=== PATIENT | male | born 1985 | race Caucasian/White ===

== ENCOUNTER 2017-10-28 22:24 | Inpatient (IN) | payer OTHER ==
[~2017-10-28] VITALS: Ht 172.7 cm; Wt 72.6 kg
--- NOTE | ~2017-10-28 | HC ---
[facility] [place] [address] CONSULTATION Name: NICOLAS GALEANO Room #: 354-P [facility] IN M.R.#: [id number] Admission: 10/29/17 Attend Phys: Jennifer Sherwood Discharge: 11/03/17 Date of : 87 Report #: [id number] THIS REPORT FOR: //name// CC: KAYCE physician/PCP Jennifer Sherwood DATE OF SERVICE: 10/29/2017 WOUND CARE CONSULTATION PERSONAL PHYSICIAN: None on staff. CHIEF COMPLAINT: Left groin abscess. HISTORY OF PRESENT ILLNESS: This is a 32-year-old male, who has approximately 10-year history of untreated diabetes, who reported to the Emergency Department complaining of abdominal pain, nausea, vomiting and pain in his left groin. The patient was seen approximately a week ago and was diagnosed with an abscess in his left groin and started on clindamycin. The patient states since that time, the abscess started to spontaneously drain and he has felt it has actually gotten somewhat better. The patient, however, was noted in the Emergency Department to be hyperglycemic and was admitted for IV antibiotics and local wound care of the left groin abscess. We have asked to assist the patient. Surgery was initially seeing the patient and they felt this was not a surgical manner, and we were asked to assist in the wound care of this gentleman at that time. The patient denies any other associated wounds he could not heal on his own in the past. The patient states his blood sugars normally run between 200 and 300, and he does not take any insulin. PAST MEDICAL HISTORY: Significant for pancreatitis, longstanding history of diabetes for approximately 10 years. CURRENT MEDICATIONS: Include ibuprofen and clindamycin. DRUG ALLERGIES: MORPHINE IV. SOCIAL HISTORY: The patient does not smoke or drink alcohol. Comes to the hospital with his . REVIEW OF SYSTEMS: CONSTITUTIONAL: The patient denies fevers or chills. NEUROLOGIC: The patient denies numbness, tingling or weakness in his arms or legs. EYES: No complaints. ENT: No complaints. CARDIAC: The patient denies chest pain, palpitations, peripheral edema. [facility] [address] [place] [address] CONSULTATION Name: NICOLAS GALEANO Room #: 354-P [facility] IN M.R.#: [id number] Admission: 10/29/17 Attend Phys: Jennifer Sherwood Discharge: 11/03/17 Date of : 87 Report #: [id number] RESPIRATORY: The patient denies shortness breath, cough or wheezes. GASTROINTESTINAL: The patient was admitted last night for abdominal pain, nausea, vomiting; however, has not vomited today. GENITOURINARY: The patient denies urgency or frequency. MUSCULOSKELETAL: No complaints. SKIN: There is an open abscess in the left groin. PHYSICAL EXAMINATION: VITAL SIGNS: Temperature 39.3, pulse 118, respirations 16, BP 115/84. GENERAL: This is an alert and oriented x 3 male, who is in mild to moderate distress secondary to pain. HEENT: Normocephalic, atraumatic. Mucous membranes are dry. Pupils are round. Sclerae are white. NECK: Supple, nontender without rigidity. BACK: Nontender. LUNGS: Clear. HEART: Regular, without murmur. ABDOMEN: Soft. Mild diffuse tenderness without organomegaly, rebound or guarding. GENITOURINARY: Evaluation of the left groin reveals an open draining abscess in the pubic region, which has bloody drainage and is exquisitely tender to palpation. The patient will not let me probe the wound itself. There are no signs of fluctuance around the wound. There is some indurated tissue. There is no significant odor. Rest of the exam is unremarkable. EXTREMITIES: The patient moves all extremities without difficulty. NEUROLOGIC: Cranial nerves 2-12 grossly intact. Motor and sensory grossly intact. LABORATORY VALUES: White count 10.7, hemoglobin 12.7. Electrolytes within normal except for low bicarb at 20. Initial glucose was 390. Lactic acid 1.2, albumin within normal limits at 3.4. Lipase was 82. WOUND CARE COURSE: At this time, I talked to the patient about starting morphine, Silvadene compound to the left groin abscess for healing and pain relief. I talked to the patient about his morphine allergy. He said he does not remember exactly what kind of an allergy it was, but that was when he got IV morphine. We will go ahead and try a challenge dose of the morphine, Silvadene cream to see how he tolerates this. IMPRESSION: 1. Left groin abscess with spontaneous drainage. 2. Uncontrolled diabetes mellitus. 3. History of noncompliance. 4. History of abdominal pain, nonspecific. PLAN: At this time, we will once again start the above local wound care. The [address] [address] CONSULTATION Name: GALEANONICOLAS Bonilla Room #: 354-P [facility] IN M.R.#: [id number] Admission: 10/29/17 Attend Phys: Jennifer Sherwood Discharge: 11/03/17 Date of : 87 Report #: [id number] patient has a pelvic CT that has been ordered by the surgeons, which is pending. We will continue to follow the patient while he is here, make sure we maximize the patient's oral protein for healing and continue all other current medications. <ELECTRONICALLY SIGNED> By: Kayode Jauregui MD 11/07/17 1524 [id number] 1824 Kayode Jauregui MD /nt
--- NOTE | ~2017-10-28 | HC ---
[facility] [place] [address] CONSULTATION Name: NICOLAS GALEANO Room #: 354-P [facility] IN M.R.#: [id number] Admission: 10/29/17 Attend Phys: Jennifer Sherwood Discharge: Date of : 87 Report #: [id number] THIS REPORT FOR: //name// CC: KAYCE physician/PCP Jennifer Sherwood REASON FOR CONSULTATION: I was asked to evaluate concerning Gram-negative bacteremia. HISTORY OF PRESENT ILLNESS: The patient was a 32-year-old who developed her left groin soft tissue abscess about a week ago. This was treated at [facility] Emergency Room. After being placed on clindamycin, he had spontaneous drainage. Overall, has improved since the drainage, but still remains tender. He is a known diabetic, but has been off his oral hypoglycemic medication. He does not check his blood sugars. Presents now to the Emergency Room with increased abdominal pain, nausea and vomiting. At the time of his admission, his blood cultures were drawn and now growing gram-negative bacilli. Culture of the wound also was obtained and now that is growing gram-negative bacilli. The patient has had no diarrhea. He has had no dysuria. He has had no cough or sputum production. Now taking narcotics for his abdominal pain. Had vomiting throughout the morning. ALLERGIES: MORPHINE. MEDICATIONS: Included clindamycin and ibuprofen prior to his admission. Now on vancomycin and Zosyn. PAST MEDICAL HISTORY: Otherwise, unremarkable. SOCIAL HISTORY: Nonsmoker, no significant alcohol intake. 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 Grew up in [place]. Now resides in [place]. REVIEW OF SYSTEMS: As noted above. PHYSICAL EXAMINATION: VITAL SIGNS: Maximum temperature of 103 degrees. He is hemodynamically stable. GENERAL: The patient was lethargic after receiving narcotics for his pain. Did arouse and was doing better and toward the end of my examination. Mental status was essentially normal. Dentition in fair repair. NECK: Supple. LUNGS: Clear. HEART: Regular, without murmur. ABDOMEN: Tender, mostly in the epigastric region. It was scaphoid. No appreciable mass or hepatosplenomegaly. GENITOURINARY: Left pubic region soft tissue abscess with wound and purulent drainage. Minimal adenopathy. External genitalia, otherwise unremarkable. [facility] [address] [place] [address] CONSULTATION Name: NICOLAS GALEANO Room #: 354-P ADM IN M.R.#: [id number] Admission: 10/29/17 Attend Phys: Jennifer Sherwood Discharge: Date of : 87 Report #: [id number] Perianal examination normal. EXTREMITIES: Unremarkable. LABORATORY STUDIES: Sodium 140, potassium 3.3, bicarbonate of 18, creatinine 1.1. Blood sugar 297, AST 225, ALT 127, alkaline phosphatase 100, bilirubin 1. Lactate 0.9. Hemoglobin 11.7, platelet count 175,000, white count 12.2, differential was unremarkable. Vancomycin trough was 6. Hemoglobin A1c 13.3. Urinalysis had glucose and ketones, no protein. Cultures as noted above. CT scan of the abdomen showed changes concerning for pyelonephritis bilaterally. No abscess evident. He had constipation changes. Lipase normal. CT scan of the abdomen showed no evidence of pancreatic inflammation. IMPRESSION: A 32-year-old with gram-negative bacteremia, abdominal pain, left groin soft tissue abscess. At this time, it appears that the bacteremia may be related to the abscess cavity. So far no evidence of urinary tract infection. He does have constipation, but no evidence of diverticular disease. PLAN: Would recommend continuing gram-negative coverage with Zosyn. Await final culture results. Repeat urinalysis and urine culture. Continue fluid management and blood glucose control. <ELECTRONICALLY SIGNED> By: Luis Dean MD 10/31/17 0925 1646 1839 Luis Dean MD /nt
--- NOTE | ~2017-10-28 | S ---
[facility] [address] [place] [address] SURGICAL PATH RPT PROCEDURE Name: NICOLAS VASQUEZ Room #: 354-P ADM IN M.R.#: [id number] Admission: 10/29/17 Date of : 87 Discharge: Report #: [id number] Path Case #: [id number] PATHOLOGY REPORT COLLECTION DATE: 10/31/2017 RECEIVED DATE: 10/31/2017 SUBMITTING PHYS: Dr. Sharmaine Carvalho OTHER PHYS: Dr. Jennifer Sherwood SPECIMEN(S) RECEIVED: A.Duodenum B.Random gastric bx * * * * * * * * * * * * FINAL DIAGNOSIS: A. Small bowel mucosa, duodenum, rule out celiac, endoscopic biopsy: - No diagnostic abnormalities present. - Negative for villous blunting or increase in intraepithelial lymphocytes. - Rare scattered dilated lymphatics within lamina propria; nonspecific change. B. Gastric mucosa, gastric, rule out H. pylori, endoscopic biopsy: - Mild chronic active gastritis. - Negative for intestinal metaplasia or atrophy. - Negative for Helicobacter pylori. COMMENT: Well-controlled Helicobacter pylori immunohistochemical stain performed on block B1 - negative. An intensive search for Helicobacter pylori-like organisms is negative. Absence of such organisms does not entirely exclude the possibility and may be due to sampling or prior treatment. Other possible etiologies may include chemical gastritis, autoimmune gastritis, gastritis associated with inflammatory bowel disease. Please correlate with clinical, endoscopic, and microbiological studies if clinically indicated. (IUV:mml; 11/01/2017) PATHOLOGIST: Ksenia Vázquez M.D. REPORT ELECTRONICALLY SIGNED BY: Ksenia Vázquez M.D. DATE/TIME: 11/01/2017 15:08 * * * * * * * * * * * * GROSS PATHOLOGY: A. Received in formalin labeled "Nicolas Vasquez, BX duodenum, rule out celiac," are 2 segments of shaw soft tissue measuring 0.9 x 0.2 x [facility] [place] [address] SURGICAL PATH RPT PROCEDURE Name: NICOLAS VASQUEZ Room #: 354-P ADM IN M.R.#: [id number] Admission: 10/29/17 Date of : 87 Discharge: Report #: [id number] Path Case #: [id number] 0.3 cm in aggregate dimensions and ranging from 0.3 to 0.5 cm in maximum dimension. The specimen is submitted entirely in cassette A1. B. Received in formalin labeled "Nicolas Friends, random gastric BX, rule out H. pylori," are 4 segments of shaw soft tissue measuring 1.2 x 1.5 x 0.2 cm in aggregate dimensions and ranging from 0.3 to 0.6 cm in maximum dimension. The specimen is submitted entirely in cassette B1. (TSD; 10/31/2017) CLINICAL HISTORY: Pre-OP DX: Nausea, vomiting, abdominal pain Post-OP DX: Ulcerated distal esophagus, esophagitis INITIAL CPT CODE(S): A; 60107 B; 93404, 07864 Professional services performed by [facility] at [facility] [address], [place] [address] Technical services performed by [facility] at [address] [place] [address], [address], [place] [address]. [facility] [address] [place] [address] PHONE: [phone] DIRECTOR: Lee Delgado M.D. * * * END OF REPORT * * *
[2017-10-28 22:26] VITALS: BP 138/92
[2017-10-28] MEDS ORDERED: CLEOCIN HCL150 MG PO (22:34)
[2017-10-28] MEDS ORDERED: IBUPROFEN 800800 M1 PO (22:36)
[2017-10-28 22:52] LABS: ABSOLUTE NEUTROPHILS 8.6 thou/uL (1.4-8.2); BASOPHILS 0.6 % (0.0-2.0); HEMATOCRIT 39.7 % (42.0-52.0); HEMOGLOBIN 14.1 gm/dL (14.0-18.0); LYMPHOCYTES 6.7 % (24.0-44.0); MCH 28.9 pg (26.0-34.0); MCHC 35.5 g/dL (28.0-37.0); MCV 81.4 fL (80.0-100.0); MONOCYTES 5.9 % (1.0-8.0); PLATELET COUNT 265 thou/uL (150-400); POLYS 86.8 % (36.0-66.0); RBC 4.88 mil/uL (4.50-6.00); RDW 12.9 % (10.5-14.5); WBC 9.9 thou/uL (4.0-11.0)
[2017-10-28 22:59] LABS: CALCIUM 9.2 mg/dL (8.5-10.1); CREATININE 0.9 mg/dL (0.7-1.3); POTASSIUM 4.1 mmol/L (3.5-5.1)
[2017-10-28 23:05] LABS: ALBUMIN 3.4 g/dL (3.4-5.0); DIRECT BILIRUBIN 0.1 mg/dL (<0.1-0.3); TOTAL BILIRUBIN 0.7 mg/dL (<0.1-1.0); TOTAL PROTEIN 7.4 g/dL (6.4-8.2)
[2017-10-29] VITALS (7 sets, daily range): BP systolic 82–134; BP diastolic 63–97
[2017-10-29 00:13] LABS: URINE BILIRUBIN NEGATIVE (Negative); URINE BLOOD 2+ (Negative); URINE CLARITY CLEAR; URINE COLOR YELLOW; URINE GLUCOSE-RANDOM* 2+ (Negative); URINE KETONES 3+ (Negative); URINE LEUKOCYTES-REFLEX NEGATIVE (Negative); URINE NITRITE-REFLEX NEGATIVE (Negative); URINE PROTEIN (DIPSTICK) NEGATIVE (Negative); URINE SPECIFIC GRAVITY 1.015 (1.005-1.035); URINE UROBILINOGEN 0.2 E.U./dl (0.2-1.0)
[2017-10-29 00:22] LABS: CASTS None Seen /LPF (None Seen); SQUAMOUS 0-3 Few /LPF (0-3); URINE RBC 0-2 Rare /HPF (0-2); URINE WBC-REFLEX 0-5 Rare /HPF (0-5)
[2017-10-29 00:23] LABS: BACTERIA-REFLEX None Seen /HPF (None Seen); CRYSTALS None Seen /LPF (None Seen)
[2017-10-29 06:56] LABS: ABSOLUTE NEUTROPHILS 9.7 thou/uL (1.4-8.2); BASOPHILS 0.5 % (0.0-2.0); HEMATOCRIT 36.4 % (42.0-52.0); HEMOGLOBIN 12.7 gm/dL (14.0-18.0); LYMPHOCYTES 3.5 % (24.0-44.0); MCH 28.9 pg (26.0-34.0); MCV 82.6 fL (80.0-100.0); MONOCYTES 5.4 % (1.0-8.0); PLATELET COUNT 230 thou/uL (150-400); POLYS 90.6 % (36.0-66.0); RBC 4.41 mil/uL (4.50-6.00); RDW 12.7 % (10.5-14.5); WBC 10.7 thou/uL (4.0-11.0)
[2017-10-29 07:00] LABS: CALCIUM 8.5 mg/dL (8.5-10.1); CREATININE 0.8 mg/dL (0.7-1.3)
[2017-10-29 20:11] LABS: CALCIUM 8.8 mg/dL (8.5-10.1); CREATININE 1.2 mg/dL (0.7-1.3); POTASSIUM 3.7 mmol/L (3.5-5.1)
[2017-10-29 20:18] LABS: ALBUMIN 2.9 g/dL (3.4-5.0); TOTAL BILIRUBIN 0.8 mg/dL (<0.1-1.0); TOTAL PROTEIN 6.9 g/dL (6.4-8.2)
[2017-10-30] VITALS (7 sets, daily range): BP systolic 90–111; BP diastolic 62–79
[2017-10-30 03:10] LABS: GLYCOHEMOGLOBIN (HGB A1C) 13.3 % (4.8-5.6)
[2017-10-30 05:43] LABS: HEMOGLOBIN 11.7 gm/dL (14.0-18.0); MCH 28.8 pg (26.0-34.0); MCHC 35.4 g/dL (28.0-37.0); MCV 81.4 fL (80.0-100.0); RBC 4.05 mil/uL (4.50-6.00); RDW 12.6 % (10.5-14.5); WBC 12.2 thou/uL (4.0-11.0)
[2017-10-30 06:08] LABS: ALBUMIN 2.4 g/dL (3.4-5.0); CALCIUM 8.4 mg/dL (8.5-10.1); CREATININE 1.1 mg/dL (0.7-1.3); POTASSIUM 3.3 mmol/L (3.5-5.1); TOTAL PROTEIN 5.9 g/dL (6.4-8.2)
[2017-10-31 02:29] LABS: URINE BILIRUBIN 1+ (Negative); URINE BLOOD 1+ (Negative); URINE CLARITY CLEAR; URINE COLOR YELLOW; URINE GLUCOSE-RANDOM* 2+ (Negative); URINE KETONES 3+ (Negative); URINE LEUKOCYTES-REFLEX NEGATIVE (Negative); URINE NITRITE-REFLEX NEGATIVE (Negative); URINE PROTEIN (DIPSTICK) 1+ (Negative); URINE SPECIFIC GRAVITY 1.025 (1.005-1.035); URINE UROBILINOGEN 0.2 E.U./dl (0.2-1.0)
[2017-10-31 02:34] LABS: ICTOTEST (BILI CONFIRMATORY) Positive (Negative)
[2017-10-31 02:37] LABS: AMORPHOUS URATES Few /LPF (None Seen); BACTERIA-REFLEX 1-9 Few /HPF (None Seen); COARSE GRANULAR CASTS 0-3 Few /LPF (None Seen); CRYSTALS None Seen /LPF (None Seen); MUCUS 0-3 Light strn/LPF (None Seen); SQUAMOUS None Seen /LPF (0-3); URINE RBC 0-2 Rare /HPF (0-2); URINE WBC-REFLEX None Seen /HPF (0-5)
[2017-10-31 04:05] VITALS: BP 105/77
[2017-10-31 06:36] LABS: HEMOGLOBIN 11.9 gm/dL (14.0-18.0); MCH 28.9 pg (26.0-34.0); MCV 82.7 fL (80.0-100.0); RBC 4.1 mil/uL (4.50-6.00); RDW 13.4 % (10.5-14.5); WBC 9.3 thou/uL (4.0-11.0)
[2017-10-31 06:47] LABS: ALBUMIN 2.4 g/dL (3.4-5.0); CHOLESTEROL 112 mg/dL (<200); DIRECT BILIRUBIN 0.2 mg/dL (<0.1-0.3); HDL CHOLESTEROL 8 mg/dL (>40); LDL CHOLESTEROL 54 mg/dL (<100); SGOT 112 U/L (15-37); SGPT 150 U/L (30-65); TOTAL BILIRUBIN 0.6 mg/dL (<0.1-1.0); TOTAL PROTEIN 6.3 g/dL (6.4-8.2); TRIGLYCERIDE 253 mg/dL (<150); VLDL 51 mg/dL (<40)
[2017-10-31 07:48] VITALS: BP 113/84
[2017-10-31 11:08] LABS: HAV IgM AB (ANTI-HAV IgM) Negative (Negative); HEPATITIS B SURFACE AG Negative (Negative); HEPATITIS C VIRUS AB <0.1 (0.0-0.9)
[2017-10-31 11:21] VITALS: BP 116/85
[2017-10-31 16:42] VITALS: BP 105/76
[2017-10-31 19:15] VITALS: BP 106/76
[2017-11-01 03:41] VITALS: BP 115/83
[2017-11-01 05:39] LABS: SGOT 41 U/L (15-37); SGPT 113 U/L (30-65)
[2017-11-01 05:40] LABS: % SATURATION 29 % (20-39); IRON 45 ug/dL (65-175); TIBC 157 ug/dL (250-450)
[2017-11-01 07:26] VITALS: BP 124/96
[2017-11-01 08:27] VITALS: BP 118/85
[2017-11-01 11:36] VITALS: BP 110/74
[2017-11-01 15:12] VITALS: BP 123/86
[2017-11-01 20:00] VITALS: BP 122/91
[2017-11-02 03:30] VITALS: BP 129/90
[2017-11-02 06:05] LABS: ALBUMIN 2.3 g/dL (3.4-5.0); CALCIUM 8.1 mg/dL (8.5-10.1); CREATININE 0.8 mg/dL (0.7-1.3); PHOSPHORUS 3.1 mg/dL (2.5-4.9); POTASSIUM 3.2 mmol/L (3.5-5.1)
[2017-11-02 07:26] VITALS: BP 138/96
[2017-11-02 11:20] VITALS: BP 142/98
[2017-11-02 17:23] VITALS: BP 129/85
[2017-11-02 19:13] VITALS: BP 127/87
[2017-11-03 04:19] VITALS: BP 126/89
[2017-11-03 07:24] VITALS: BP 128/88
[2017-11-03] MEDS ORDERED: HYDROCODON-ACE1 EAC7 PO (09:10)
[2017-11-03] MEDS ORDERED: KEFLEX500 M1 PO (09:10)
[2017-11-03] MEDS ORDERED: LANTUS100 UNIT/M SUBQ (09:11)
[2017-11-03] MEDS ORDERED: NOVOLOG100 UNIT/1 SUBQ (09:11)
[2017-11-03] MEDS ORDERED: PROTONIX40 M1 PO (09:11)
[2017-11-03] MEDS ORDERED: REGLAN 10 MG TA10 MG PO (09:17)
[2017-11-03 11:17] VITALS: BP 128/88
[2017-11-03 12:09] VITALS: BP 128/88
== END 2017-11-03 14:00 | disposition home or self-care (01) | DRG 853 ==
LOC: ER 22:24 → 3W 10-29 02:29 → EROBS 10-29 02:29 → 3W 10-29 03:30
PROVIDERS: Emergency Medicine; Hospitalist; Internal Medicine Gastroenterology; Nurse Practitioner; Nurse Practitioner Family; Specialist; Surgery
PROC: 0DB98ZX Excision of Duodenum, Via Natural or Artificial Opening Endoscopic, Diagnostic (ICD-10-PCS; 2017-10-31)
PROC: 0DB68ZX Excision of Stomach, Via Natural or Artificial Opening Endoscopic, Diagnostic (ICD-10-PCS; 2017-10-31)
PROC: 0JBC0ZZ Excision of Pelvic Region Subcutaneous Tissue and Fascia, Open Approach (ICD-10-PCS; principal; 2017-11-01)
DX: A41.59 Other Gram-negative sepsis (principal); J15.0 Pneumonia due to Klebsiella pneumoniae; L02.214 Cutaneous abscess of groin; R10.9 Unspecified abdominal pain; E11.65 Type 2 diabetes mellitus with hyperglycemia; K59.00 Constipation, unspecified; E86.0 Dehydration; K20.9 Esophagitis, unspecified; K29.90 Gastroduodenitis, unspecified, without bleeding; E11.43 Type 2 diabetes mellitus with diabetic autonomic (poly)neuropathy; K31.84 Gastroparesis; K29.70 Gastritis, unspecified, without bleeding; Z88.6 Allergy status to analgesic agent; Z91.19 Patient's noncompliance with other medical treatment and regimen; Z79.899 Other long term (current) drug therapy
CPT/HCPCS: 10879; 50010; 50101; 50386; 50417; 62110; 62900; 70005

== ENCOUNTER 2017-11-04 06:31 | Inpatient (IN) | payer OTHER ==
[~2017-11-04] VITALS: Ht 172.7 cm; Wt 74.8 kg
--- NOTE | ~2017-11-04 | S ---
[facility] [address] [place] [address] SURGICAL PATH RPT PROCEDURE Name: NICOLAS VASQUEZ Room #: 464-P ADM IN M.R.#: [id number] Admission: 11/04/17 Date of : 87 Discharge: Report #: [id number] Path Case #: [id number] PATHOLOGY REPORT COLLECTION DATE: 11/05/2017 RECEIVED DATE: 11/05/2017 SUBMITTING PHYS: Dr. Gui Lara, OTHER PHYS: Dr. Jennifer Sherwood SPECIMEN(S) RECEIVED: A.Gallbladder and contents * * * * * * * * * * * * FINAL DIAGNOSIS: "Gallbladder and contents", cholecystectomy: - Chronic cholecystitis. (CLW:mmshlomo; 11/06/2017) PATHOLOGIST: Kerry Regan M.D. REPORT ELECTRONICALLY SIGNED BY: Kerry Regan M.D. DATE/TIME: 11/06/2017 14:22 * * * * * * * * * * * * GROSS PATHOLOGY: Received in formalin labeled "Nicolas Vasquez, gallbladder and contents," is a 7.7 x 3.2 x 0.8 cm, previously opened gallbladder with green and smooth serosal surfaces. The opened gallbladder reveals rrsybe-[id number]-vpydr and velvety mucosa and an average wall thickness of 0.1 cm. Calculi are not present and no masses are noted grossly. Electrochemist sections from the body and fundus are submitted along with the proximal margin in cassette A1. (SDY; 11/05/2017) CLINICAL HISTORY: Biliary dyskinesia, abdominal ascites INITIAL CPT CODE(S): A; 64484 Professional services performed by [facility] at [facility] [address], [place] [address] Technical services performed by [facility] at [address] [place] [address], [address] [address]. [facility] [address] [place] [address] SURGICAL PATH RPT PROCEDURE Name: NICOLAS VASQUEZ Room #: 464-P ADM IN M.R.#: [id number] Admission: 11/04/17 Date of : 87 Discharge: Report #: [id number] Path Case #: [id number] [facility] [address] [address] PHONE: [phone] DIRECTOR: Lee Delgado M.D. * * * END OF REPORT * * *
[~2017-11-04 06:31] MED LIST: CLEOCIN HCL150 MG PO; HYDROCODON-ACE1 EAC7 PO; IBUPROFEN 800800 M1 PO; KEFLEX500 M1 PO; LANTUS100 UNIT/M SUBQ; NOVOLOG100 UNIT/1 SUBQ; PROTONIX40 M1 PO; REGLAN 10 MG TA10 MG PO
[2017-11-04 06:33] VITALS: BP 135/86
[2017-11-04 07:46] LABS: ABSOLUTE NEUTROPHILS 9.2 thou/uL (1.4-8.2); BASOPHILS 0.5 % (0.0-2.0); EOSINOPHILS 0.5 % (0.0-3.0); HEMATOCRIT 32.1 % (42.0-52.0); HEMOGLOBIN 11.3 gm/dL (14.0-18.0); LYMPHOCYTES 13.4 % (24.0-44.0); MCH 28.5 pg (26.0-34.0); MCHC 35.1 g/dL (28.0-37.0); MCV 81.2 fL (80.0-100.0); MONOCYTES 6.7 % (1.0-8.0); PLATELET COUNT 313 thou/uL (150-400); POLYS 78.9 % (36.0-66.0); RBC 3.96 mil/uL (4.50-6.00); RDW 13.1 % (10.5-14.5); WBC 11.7 thou/uL (4.0-11.0)
[2017-11-04 07:50] LABS: CALCIUM 8.6 mg/dL (8.5-10.1); CREATININE 0.8 mg/dL (0.7-1.3)
[2017-11-04 07:56] LABS: ALBUMIN 2.5 g/dL (3.4-5.0); TOTAL BILIRUBIN 0.9 mg/dL (<0.1-1.0); TOTAL PROTEIN 6.4 g/dL (6.4-8.2)
[2017-11-04 08:56] LABS: URINE BILIRUBIN NEGATIVE (Negative); URINE BLOOD TRACE (Negative); URINE CLARITY CLEAR; URINE COLOR YELLOW; URINE GLUCOSE-RANDOM* NEGATIVE (Negative); URINE KETONES 1+ (Negative); URINE LEUKOCYTES-REFLEX NEGATIVE (Negative); URINE NITRITE-REFLEX NEGATIVE (Negative); URINE PROTEIN (DIPSTICK) NEGATIVE (Negative); URINE SPECIFIC GRAVITY 1.015 (1.005-1.035); URINE UROBILINOGEN 0.2 E.U./dl (0.2-1.0)
[2017-11-04 09:15] VITALS: BP 132/84
[2017-11-04 10:08] VITALS: BP 132/84
[2017-11-04 10:51] VITALS: BP 135/93
[2017-11-04 18:13] LABS: CALCIUM 7.9 mg/dL (8.5-10.1); CREATININE 0.8 mg/dL (0.7-1.3)
[2017-11-04 18:14] LABS: MAGNESIUM 1.8 mg/dL (1.8-2.4)
[2017-11-04 20:33] VITALS: BP 134/94
[2017-11-04 23:49] VITALS: BP 128/89
[2017-11-05] VITALS (8 sets, daily range): BP systolic 125–133; BP diastolic 69–95
[2017-11-06 00:14] VITALS: BP 140/88
[2017-11-06 06:53] LABS: HEMATOCRIT 29.2 % (42.0-52.0); HEMOGLOBIN 10.2 gm/dL (14.0-18.0); MCH 28.5 pg (26.0-34.0); MCV 81.6 fL (80.0-100.0); RBC 3.58 mil/uL (4.50-6.00); RDW 13.2 % (10.5-14.5); WBC 7.9 thou/uL (4.0-11.0)
[2017-11-06 07:28] LABS: ALBUMIN 2.4 g/dL (3.4-5.0); CALCIUM 8.3 mg/dL (8.5-10.1); CREATININE 0.8 mg/dL (0.7-1.3); POTASSIUM 3.1 mmol/L (3.5-5.1); TOTAL BILIRUBIN 0.7 mg/dL (<0.1-1.0); TOTAL PROTEIN 5.9 g/dL (6.4-8.2)
[2017-11-06 09:08] VITALS: BP 138/93
[2017-11-06] MEDS ORDERED: TRAMADOL 50 MG50 MG PO (11:00)
[2017-11-06 14:11] VITALS: BP 138/93
== END 2017-11-06 14:35 | disposition home or self-care (01) | DRG 418 ==
LOC: ER 06:31 → 4W 08:27 → EROBS 08:27 → 4W 10:09 → ENTRNSPT 11-06 14:30 → EDTRNSPTSTS 11-06 14:31 → 4W 11-06 14:35
PROVIDERS: Emergency Medicine; Hospitalist
PROC: 0FT44ZZ Resection of Gallbladder, Percutaneous Endoscopic Approach (ICD-10-PCS; principal; 2017-11-05)
DX: K82.8 Other specified diseases of gallbladder (principal); J98.11 Atelectasis; K56.7 Ileus, unspecified; L02.214 Cutaneous abscess of groin; K22.10 Ulcer of esophagus without bleeding; E10.43 Type 1 diabetes mellitus with diabetic autonomic (poly)neuropathy; E10.65 Type 1 diabetes mellitus with hyperglycemia; E87.6 Hypokalemia; K31.84 Gastroparesis; K29.70 Gastritis, unspecified, without bleeding; Z88.6 Allergy status to analgesic agent
CPT/HCPCS: 10040; 50010; 50101; 50249; 50411; 50555; 50558; 50962; 51489; 51975; 52265; 53307; 53310; 54022; 54118; 55245; 55317; 56462; 56525; 56526; 56639; 62110; 62900; 70005